=== PATIENT | male | born 1980 | race African-American/Black ===

== ENCOUNTER 2020-09-30 12:00 | Emergency (ER) | payer SELFPAY ==
[~2020-09-30] VITALS: Ht 172.7 cm; Wt 82.0 kg
[2020-09-30 12:05] VITALS: BP 151/101
[2020-09-30] MEDS ORDERED: AZITHROMYCIN 500 MG TABLET PO ONE (12:30)
[2020-09-30] MEDS ORDERED: CEFTRIAXONE SODIUM 250 MG/VIAL IM ONE (12:30)
[2020-09-30 12:55] LABS: CLARITY URINE CLEAR (CLEAR); COLOR URINE YELLOW (YELLOW); KETONES URINE NEGATIVE (NEGATIVE); LEUKOCYTE ESTERASE URINE NEGATIVE (NEGATIVE); NITRITE URINE NEGATIVE (NEGATIVE); OCCULT BLOOD URINE NEGATIVE (NEGATIVE); PH URINE 5.5 (4.5-8.0); PROTEIN URINE NEGATIVE (NEGATIVE); SPECIFIC GRAVITY URINE 1.021 (1.005-1.030); UROBILINOGEN URINE 0.2 E.U./dL (0.2-1.0)
[2020-09-30] MEDS ORDERED: LIDOCAINE HCL/PF 1% 10 MG/ML 5ML VIAL IJ ONE (13:00)
== END 2020-09-30 13:29 | disposition home or self-care (01) ==
LOC: ER 12:00
DX: N48.89 Other specified disorders of penis (principal); Z98.890 Other specified postprocedural states
CPT/HCPCS: 81003; 96372; 99283; J0696; J3490